=== PATIENT | male | born 1995 | race Caucasian/White ===

== ENCOUNTER 2018-06-20 16:32 | Emergency (ER) | payer MEDICAID ==
--- NOTE | 2018-06-20 18:08 | EDM.PDOCBH ---
ED HPI GENERAL MEDICAL PROBLEM - General Chief Complaint: Behavioral/Psych Stated Complaint: SYC EVALUATION Time Seen by Provider: 06/20/18 17:07 Source of Information: Reports: Patient History Limitations: Reports: No Limitations - History of Present Illness INITIAL COMMENTS - FREE TEXT/NARRATIVE: HISTORY AND PHYSICAL: History of present illness: Patient is a 22-year-old male who is brought to the emergency room by law enforcement for medical evaluation. The patient had exchange some open and text messages with family members which led them to be concerned with his well- being. Patient states that he has had stressors while at work and with his and "just needed some time alone". States they or text to family members that he was of self-harm or having any thoughts of suicide. Law enforcement brought the patient in for evaluation and will be discharged to home after his screening (not in law enforcement custody). Law enforcement does confirm that the patient did not make any verbal or text implied suggestions of self-harm or suicide. Has been on Fluoxetine "a few years ago" for depression, but has not ever history of suicidal ideation or self-harm. He states he took himself off of this medication as he was feeling improved and did not feel a need for this at the time. He denies any drug or alcohol abuse. Review of systems: As per history of present illness and below otherwise all systems reviewed and negative. Past medical history: As per history of present illness and as reviewed below otherwise noncontributory. Surgical history: As per history of present illness and as reviewed below otherwise noncontributory. Social history: No reported history of drug or alcohol abuse. Family history: As per history of present illness and as reviewed below otherwise noncontributory. Physical exam: General: Well-developed and well-nourished 22-year-old male. Nontoxic appearing and in no acute distress. HEENT: Atraumatic, normocephalic, pupils equal and reactive bilaterally, negative for conjunctival pallor or scleral icterus, mucous membranes moist, throat clear, neck supple, nontender, trachea midline. No drooling or trismus noted. No meningeal signs Lungs: Clear to auscultation, breath sounds equal bilaterally, chest nontender. Heart: S1S2, regular rate and rhythm without overt murmur Abdomen: Soft, nondistended, nontender. Negative for masses or hepatosplenomegaly. Negative for costovertebral tenderness. Pelvis: Stable nontender. Genitourinary: Deferred. Rectal: Deferred. Skin: Intact, warm, dry. No lesions or rashes noted. Extremities: Atraumatic, negative for cords or calf pain. Neurovascular unremarkable. Neuro: Awake, alert, oriented. Cranial nerves II through XII unremarkable. Cerebellum unremarkable. Motor and sensory unremarkable throughout. Exam nonfocal. Notes: Patient was directly asked multiple times if he was suicidal or having any thoughts of self-harm, he declines. He states he is under a lot of stress with his family members and in particular and had sent some text requesting some time alone. We discussed in great length signs and symptoms that would prompt him to return to the emergency room or recheck for help. He is not in custody of law enforcement and is not being held for any reason. Blood sugar is within normal limits. He declines the need for further evaluation or diagnostics. Patient discharged to home. Diagnostics: Bedside glucose Therapeutics: None Prescription: None Impression: Encounter for medical evaluation Stress Plan: 1. Please follow-up with your primary care provider in the next 1-2 days. 2. Return to the ED as needed and as discussed. Definitive disposition and diagnosis as appropriate pending reevaluation and review of above. - Related Data Allergies Allergy/AdvReac Type Severity Reaction Status Date / Time No Known Allergies Allergy Verified 06/20/18 17:46 Home Meds: Home Meds . [No Known Home Meds] 06/20/18 [History] ED ROS GENERAL - Review of Systems Review Of Systems: ROS reveals no pertinent complaints other than HPI. ED EXAM, BEHAVIORAL HEALTH - Physical Exam Exam: See Below (See dictation) COURSE, BEHAVIORAL HEALTH COMP - Course Vital Signs: Last Vital Signs Temp 97.5 F 06/20/18 17:25 Pulse 88 06/20/18 17:25 Resp 18 06/20/18 17:25 BP 145/74 H 06/20/18 17:25 Pulse Ox 98 06/20/18 17:25 Orders, Labs, Meds: Active Orders 24 hr Category Date Time Status Blood Glucose Check, Bedside [RC] ONETIME Care 06/20/18 18:08 Active Departure - Departure Time of Disposition: 18:14 Disposition: Home, Self-Care 01 Clinical Impression: Stress, Encounter for medical screening examination - Discharge Information Referrals: PCP,None [Primary Care Provider] - Forms: ED Department Discharge Additional Instructions: The following information is given to patients seen in the emergency department who are being discharged to home. This information is to outline your options for follow-up care. We provide all patients seen in our emergency department with a follow-up referral. The need for follow-up, as well as the timing and circumstances, are variable depending upon the specifics of your emergency department visit. If you don't have a primary care physician on staff, we will provide you with a referral. We always advise you to contact your personal physician following an emergency department visit to inform them of the circumstance of the visit and for follow-up with them and/or the need for any referrals to a consulting specialist. The emergency department will also refer you to a specialist when appropriate. This referral assures that you have the opportunity for follow-up care with a specialist. All of these measure are taken in an effort to provide you with optimal care, which includes your follow-up. Under all circumstances we always encourage you to contact your private physician who remains a resource for coordinating your care. When calling for follow-up care, please make the office aware that this follow-up is from your recent emergency room visit. If for any reason you are refused follow-up, please contact the [facility] Emergency Department at and asked to speak to the emergency department charge nurse. [facility] [address] [place] [address] [place] [address] 1. Please follow-up with your primary care provider in the next 1-2 days. 2. Return to the ED as needed and as discussed. - My Orders Last 24 Hours: My Active Orders 06/20/18 18:08 Blood Glucose Check, Bedside [RC] ONETIME - Assessment/Plan Last 24 Hours: My Active Orders 06/20/18 18:08 Blood Glucose Check, Bedside [RC] ONETIME
== END 2018-06-20 18:27 | disposition home or self-care (01) ==
LOC: MW.ED 16:32
DX: F43.9 Reaction to severe stress, unspecified (principal)
CPT/HCPCS: 82962; 99284